=== PATIENT | female | born 1995 | race Two or more races ===

== ENCOUNTER 2024-01-11 12:43 | Inpatient (IN) | payer OTHER, SELFPAY ==
[~2024-01-11] VITALS: Ht 170.2 cm; Wt 64.7 kg
[2024-01-11 16:28] LABS: Basophils # (auto) 0 10 ^3/uL (0-0.2); Basophils % (auto) 0.2 % (0.0-2.0); Eosinophils # (auto) 0 10 ^3/uL (0-0.8); Eosinophils % (auto) 0.1 % (0.0-7.0); Hematocrit 33.5 % (36.0-46.0); Lymphocytes # (auto) 0.8 10 ^3/uL (0.4-5.4); Lymphocytes % (auto) 9.2 % (10.0-50.0); Mean Corpuscular Hemoglobin 23.9 pg (28.0-32.0); Mean Corpuscular Hgb Conc. 32.7 g/dL (32.0-36.0); Mean Corpuscular Volume 73.3 fL (80.0-100.0); Monocytes # (auto) 0.8 10 ^3/uL (0-1.3); Monocytes % (auto) 9.5 % (0.0-12.0); Neutrophils # (auto) 6.8 10 ^3/uL (1.6-8.6); Platelet Count (auto) 191 10^3/uL (140-450); Red Blood Cells 4.57 10^6/uL (4.0-5.20); Red Cell Distribution Width 16.5 % (11.8-14.3); White Blood Cell 8.4 10^3/uL (4.4-10.8)
[2024-01-11 16:37] LABS: Chloride 107 mmol/L (98-107); Potassium 3.8 mmol/L (3.5-5.1); Sodium 138 mmol/L (136-145)
[2024-01-11 16:38] LABS: Calcium 9.4 mg/dL (8.7-10.4)
[2024-01-11 16:43] LABS: Blood Urea Nitrogen 8 mg/dL (9-23); Glucose 110 mg/dL (74-106)
[2024-01-11 16:59] LABS: Anion Gap 9 (5-15); Carbon Dioxide 22 mmol/L (20-31)
[2024-01-11 19:48] LABS: Urine Amorphous Crystal FEW /hpf (None Seen); Urine Bacteria MANY /hpf (None Seen); Urine Blood TRACE /uL (Negative); Urine Clarity Clear (Clear); Urine Color Light-Yellow (Yellow); Urine Protein, UAD Negative (Negative); Urine Specific Gravity 1.008 (1.001-1.035); Urine Urobilinogen Normal (Negative); Urine WBC 5 /hpf (0 - 5)
[2024-01-11] MEDS ORDERED: TEMAZEPAM 15 MG CAP PO PRN (22:00)
[2024-01-11] MEDS ORDERED: HYDROcodone-ACET 5/325MG TAB PO PRN (22:00)
[2024-01-11] MEDS ORDERED: ONDANSETRON HCL 4 MG/2 ML VIAL IV PRN (22:00)
[2024-01-11 22:30] VITALS: PULSE 107; RESP 13; O2SAT 97
[2024-01-11] MEDS: SODIUM CHLORIDE 0.9% 500 ML IV ONE (22:59)
[2024-01-11] MEDS: cefTRIAXone 1GM/50ML D5W 50 ML IV ONE (22:59)
[2024-01-12 02:37] VITALS: BP 127/83; PULSE 93; RESP 18; TEMP 100.6; O2SAT 100
[2024-01-12] MEDS: ACETAMINOPHEN 325 MG TAB PO PRN (03:05)
[2024-01-12 03:25] VITALS: BP 116/67; PULSE 84; RESP 16; TEMP 99.5; O2SAT 98
[2024-01-12 05:00] VITALS: BP 101/52; PULSE 72; RESP 19; TEMP 98.5; O2SAT 97
[2024-01-12 05:41] LABS: Chloride 111 mmol/L (98-107); Potassium 3.7 mmol/L (3.5-5.1); Sodium 140 mmol/L (136-145)
[2024-01-12 05:42] LABS: Anion Gap 8 (5-15); Carbon Dioxide 21 mmol/L (20-31)
[2024-01-12 05:43] LABS: Calcium 8.9 mg/dL (8.7-10.4)
[2024-01-12 05:47] LABS: BUN/Creatinine Ratio 10.3 (10.0-20.0); Blood Urea Nitrogen 7 mg/dL (9-23); Glucose 105 mg/dL (74-106)
[2024-01-12 09:00] VITALS: BP 121/74; PULSE 105; RESP 17; TEMP 100.7; O2SAT 100
[2024-01-12] MEDS: cefTRIAXone 1GM/50ML D5W 50 ML IV SCH (09:30)
[2024-01-12 13:00] VITALS: BP 117/74; PULSE 102; RESP 17; TEMP 100.8; O2SAT 98
[2024-01-12] MEDS ORDERED: CIPR-173 PO (14:01)
[2024-01-12] MEDS ORDERED: CIPR500T4 PO (16:36)
[2024-01-13 14:06] LABS: Chlamydia Trachomatis, NAA Negative (Negative); Neisseria gonorrhoeae, NAA Negative (Negative)
== END 2024-01-12 17:00 | disposition home or self-care (01) | DRG 690 ==
LOC: ER 12:48 → OVERFLOW 22:03 → EAST 01-12 02:35
PROVIDERS: ADMIT Nurse Practitioner; ATTEND Student in an Organized Health Care Education/Training Program
DX: N13.6 Pyonephrosis (principal); Z79.899 Other long term (current) drug therapy
CPT/HCPCS: 36415; 74176; 80048; 81001; 84702; 85025; 87086; 87088; 87186; 96365; G0378